=== PATIENT | male | born 1950 | race Hispanic/Latino ===

== ENCOUNTER 2017-08-22 09:28 | Outpatient (CLI) | payer MEDICARE ==
--- NOTE | 2017-08-22 23:36 | XRay Report ---
FINAL REPORT PROCEDURE: XR KNEE BILAT 4+V TECHNIQUE: Bilateral knee radiographs, 4 or more views, including AP, lateral, sunrise and oblique views. HISTORY: Bilateral knee pain. COMPARISON: No prior studies are available for comparison. FINDINGS: Right Fracture (s) and/or Dislocation(s): None . Alignment: Normal. Joint space(s): Mild medial compartment narrowing. Patellar enthesophyte. Small joint effusion. Soft tissues: Normal. Bone mineralization: Mild osteopenia Foreign bodies: None. Left Fracture (s) and/or Dislocation(s): None . Alignment: Slight lateral patellar subluxation. Joint space(s): Mild medial compartment narrowing Soft tissues: Normal. Bone mineralization: Mild osteopenia. Foreign bodies: None. IMPRESSION: Mild osteopenia and degenerative change. Small right joint effusion.
== END 2017-08-22 09:29 | disposition home or self-care (01) ==
LOC: SPVIMAG 09:28
PROVIDERS: ATTEND Orthopaedic Surgery Sports Medicine
DX: S83.012A Lateral subluxation of left patella, initial encounter (principal); M17.0 Bilateral primary osteoarthritis of knee; M85.861 Other specified disorders of bone density and structure, right lower leg; M85.862 Other specified disorders of bone density and structure, left lower leg; X58.XXXA Exposure to other specified factors, initial encounter; Y93.89 Activity, other specified; Y92.89 Other specified places as the place of occurrence of the external cause; Y99.8 Other external cause status